=== PATIENT | male | born 1970 | race Caucasian/White ===

== ENCOUNTER 2023-07-21 11:05 | Emergency (ER) | payer SELFPAY ==
[~2023-07-21] VITALS: Ht 170.2 cm; Wt 100.0 kg
[2023-07-21 11:13] VITALS: BP 142/82; PULSE 84; RESP 16; TEMP 97.7
[2023-07-21] MEDS ORDERED: PREG75 PO ×2 (11:16)
[2023-07-21] MEDS: IBUPROFEN 600 MG TABLET PO ONE (13:12)
[2023-07-21] MEDS: CEPHALEXIN MONOHYDRATE 500 MG CAPSULE PO ONE (13:12)
[2023-07-21] MEDS: SULFAMETHOX/TRIMETH DS 800-160 MG/TABLET PO ONE (13:12)
[2023-07-21] MEDS ORDERED: SULF-261 PO (13:34)
[2023-07-21] MEDS ORDERED: IBUP-1492 PO (13:34)
[2023-07-21] MEDS ORDERED: CEPH-558 PO (13:34)
== END 2023-07-21 13:57 | disposition home or self-care (01) ==
LOC: EMS 11:07
DX: J34.89 Other specified disorders of nose and nasal sinuses (principal); I10 Essential (primary) hypertension
CPT/HCPCS: 99284; Z7502; Z7610